=== PATIENT | male | born 1975 | race Caucasian/White ===

== ENCOUNTER 2021-07-16 15:52 | Emergency (ER) | payer SELFPAY ==
[~2021-07-16] VITALS: Ht 193 cm; Wt 100.0 kg
[2021-07-16 15:58] VITALS: BP 105/64
[2021-07-16] MEDS ORDERED: HYDROcodone/acetaminophen 10/325mg tab PO STA (16:02)
--- NOTE | 2021-07-16 17:12 | NUR ---
[employer]
[2021-07-16] MEDS ORDERED: morphine 4 MG/ML inj SYRINge IM ONE (17:30)
== END 2021-07-16 17:55 | disposition home or self-care (01) ==
LOC: ER 15:53
DX: S52.182A Other fracture of upper end of left radius, initial encounter for closed fracture (principal); W18.39XA Other fall on same level, initial encounter; Y93.89 Activity, other specified; Y92.89 Other specified places as the place of occurrence of the external cause; Y99.8 Other external cause status
CPT/HCPCS: 29105; 73090; 96372; 99283; J2270

== ENCOUNTER 2025-01-30 23:25 | Emergency (ER) | payer OTHER ==
[~2025-01-30] VITALS: Ht 193 cm; Wt 104.5 kg
--- NOTE | 2025-01-30 23:30 | Physician Documentation ---
History of Present Illness ~ Stated Complaint: LEG LAC M BLS Time Seen by MD: 23:26 HPI Patient presents to the emergency room for evaluation of laceration to his right elbow and right foot. Patient was taking a shower and had a glass sliding door that shattered resulting in his lacerations. He states he did have a syncopal episode after the laceration however he denies any head strike. Currently he is denying any pain medications. He is unsure of his last tetanus Tetanus witin 5 years: No Medication Reconciliation Allergies: Coded Allergies: No Known Allergies (Unverified , 07/16/21) Past Medical History Past Medical History: No Pertinent History Past Surgical History: noncontributory Alcohol Use: None Drug Use: none Lives In: Home Review of Systems ROS All review of systems negative except as per HPI Physical Exam Physical Exam General: Patient is awake, alert, oriented x4 in no acute distress and well appearing.~ Head: Normocephalic and atraumatic. Eyes: Conjunctival normal. EOMI. PERRL. ENT: Mucous membranes moist. Neck: Supple, trachea is midline. Chest: Clear to auscultation bilaterally without rales, rhonchi, or wheezes. There is no accessory muscle use or retractions. Cardiac: RRR without murmurs, gallops, or rubs. Extremities: 4 cm full-thickness laceration to dorsum of right foot. Movements intact. Good plethora. 3 cm full-thickness laceration to patient's right elbow with all movements intact. Procedures Procedures Laceration repair of elbow: Status post informed verbal consent patient was sterilely cleaned and draped. Patient anesthetized with 1% lidocaine with epinephrine to a total of 1 cc. 3-[address] five simple interrupted sutures and patient's 3 cm laceration. Wound was thoroughly irrigated previously to this. Patient tolerated procedure well without complication total time of procedure 7 minutes. Laceration repair foot: Status post informed verbal consent patient was sterilely cleaned and draped. Patient is anesthetized with 1% lidocaine with epinephrine to a total of 2 cc. 3-[address] seven simple interrupted sutures to approximate 4 cm laceration. Wound was thoroughly irrigated previously to closure. Patient tolerated procedure well without complication. Total time of procedure 10 minutes. Wound was explored for foreign bodies or tendinous ruptures but no foreign body or tendinous rupture could be appreciated. Progress Results/Orders Results/Orders Orders - GEORGI FRANCISCO MD Foot, Complete (3vw Min) (01/30/25 23:43) Dressing Orders (01/30/25 23:30) Laceration/I&D Tray Set Up (01/30/25 23:30) Wound Care Orders (01/30/25 23:30) Completed Orders - GEORGI FRANCISCO MD Foot, Complete (3vw Min) (01/30/25 23:43) Tetanus/Pertuss/Diph Acell/Pf (Boostrix (01/30/25 23:30) Bacitracin Ointment (Bacitracin Ointment (01/30/25 23:30) Ondansetron Disint. Tablet (Zofran Odt T (01/31/25 00:00) Ondansetron Disint. Tablet (Zofran Odt T (01/31/25 00:00) Medications Received in ER Medications (Trade) Dose Ordered Sig/Maliha Route PRN Reason Start Time Stop Time Status Last Admin Dose Admin (Boostrix vaccine syringe) 0.5 ml ONCE ONCE IMVAC 01/30/25 23:30 01/30/25 23:32 DC 01/31/25 00:14 0.5 ML (bacitracin ointment) 1 applic ONCE ONCE TP 01/30/25 23:30 01/30/25 23:32 DC 01/31/25 00:14 1 APPLIC (Zofran ODT tablet) 8 mg ONCE ONCE PO 01/31/25 00:00 01/31/25 00:07 DC 01/31/25 00:13 8 MG Vital Signs 01/30/25 23:37 Temp 98.2 Pulse 72 Resp 16 B/P (MAP) 112/69 Pulse Ox 98 Medical Decision Making Additional information obtaine: N/A Findings Patient presents to the emergency room with lacerations as per HPI. Differentials include but are not limited to laceration, tendinous injury, soft tissue injury, foreign body therefore x-ray performed which was negative for foreign body. Lacerations performed on patient's elbow and foot. Movements intact that he had not suspect tendinous rupture. Tetanus made to be up-to-date. Wound care discussed as well as the need to have sutures removed. Movements appear intact and I have low suspicion for tendon rupture however wound was explored and I could not appreciate any tendon rupture that that has slight decreased movement in his 4th digit of his right foot. This matches the movements of his left foot. Discussed with him the need to follow up with orthopedist should his toe not be working right but at this time I do not believe he has suffered a tendinous rupture. General Diff Dx:Considerations: Include: Abrasion, Contusion, Fracture, Hematoma, Laceration, Malunion, Neurovascular injury, Open fracture, Sprain, Ulcer, Other Knee Diff Dx:Considerations: Include: Abrasion, Arthritis, Contusion, DJD, Fracture-femur, Fracture-fibula, Fracture-patella, Fracture-tibia, Gout, Hematoma, Laceration, Meniscus injury, Neurovascular injury, Open fracture, Rheumatoid arthritis, Septic, Sprain, Sprain-MCL, Sprain-LCL, Sprain-ACL, Sprain-PCL, Other Ankle Diff Dx:Considerations: Include: Abrasion, Arthritis, Contusion, DJD, Fracture-metatarsal, Fracture-fibula, Fracture-tarsal, Fracture-tibia, Gout, Hematoma, Laceration, Malunion, Neurovascular injury, Nonunion, Open fracture, Osteomyelitis, Rheumatoid arthritis, Sprain, Septic, Ulcer, Other Foot Diff Dx:Considerations: Include: Abrasion, Arthritis, Cellulitis, Contusion, Dislocation, DJD, Fracture-metatarsal, Fracture-phalynx, Fracture- tarsal, Gout, Hematoma, Ingrown toenail, Laceration, Malunion, Neurovascular injury, Open fracture, Paronychia, Puncture, Rheumatoid, Sprain, Septic, Subun gual hematoma, Ulcer, Other Toe Diff Dx:Considerations: Include: Abrasion, Cellulitis, Contusion, Dislocat ion, Felon, Fracture, Hematoma, Laceration, Neurovascular injury, Open fracture, Paronychia, Subungual hematoma, Other Departure Disposition: 01 HOME / SELF CARE / HOMELESS Impression: Primary Impression: Laceration Condition: Stable Discharge Instructions: Laceration Care, Adult, [id number] Additional Instructions: Wash wounds with soap and water only. Keep covered with antibiotic ointment and Band-Aid. Have sutures removed in 7-10 days. Return for signs of infection. I do not believe you have suffered a tendon laceration however if you noticed that has obviously something wrong you can call the attached orthopedist to be evaluated. Referrals: NO PRIMARY CARE PROVIDER (PCP) YONATHAN ZELAYA MD Education Educated: Patient Educated regarding: diagnosis, treatment, need for follow up Signature Scribe Signature: No scribe Attestation: The note accurately reflects work and decisions made by me.Georgi Francisco MD 01/31/25 00:54 GEORGI FRANCISCO MD Jan 30, 2025 23:30
[2025-01-30 23:37] VITALS: BP 112/69; PULSE 72; RESP 16; O2SAT 98
--- NOTE | 2025-01-30 23:53 | RADIOLOGY REPORT ---
CLINICAL INDICATION: fb RIGHT FOOT TECHNIQUE: FOOT CPLTDI FOOT, COMPLETE (3VW MIN) Comparison: None FINDINGS/IMPRESSION: : There is no evidence of acute fracture or dislocation. Soft tissues are unremarkable.
[2025-01-31] MEDS: ondansetron 4mg rapidly disintigrating tab PO ONE ×2 (00:08→00:13)
[2025-01-31] MEDS: TETanus/Pertussis (Acell)/Diphther VAC/PF (Tdap-Adult) 0.5ml syringe IMVAC ONE (00:14)
[2025-01-31] MEDS: bacitracin 15gm ointment TP ONE (00:14)
[2025-01-31 01:18] VITALS: TEMP 98.2
== END 2025-01-31 01:25 | disposition home or self-care (01) ==
LOC: ER 23:25
DX: S51.011A Laceration without foreign body of right elbow, initial encounter (principal); S91.311A Laceration without foreign body, right foot, initial encounter; X58.XXXA Exposure to other specified factors, initial encounter; Y93.89 Activity, other specified; Y92.89 Other specified places as the place of occurrence of the external cause; Y99.8 Other external cause status
CPT/HCPCS: 12002; 73630; 90471; 90715; 99283; A6258; A6449

== ENCOUNTER → 2025-01-31 | Emergency (ER) | payer OTHER ==
[~2025-01-31] VITALS: Ht 198.1 cm; Wt 104.5 kg
[2025-01-31 21:23] VITALS: BP 139/81; PULSE 87; RESP 15; TEMP 96.8; O2SAT 98
--- NOTE | 2025-01-31 21:30 | Physician Documentation ---
History of Present Illness ~ Chief Complaint: Foot pain Stated Complaint: RIGHT FOOT PAIN Time Seen by MD: 21:26 Source: patient Mode of Arrival: POV Exam Limitations: no limitations HPI Patient had injury to right foot with a laceration from a piece of glass had it repaired last night concerned because her some swelling and toes that appear to be bruised concerned that there was lack of blood flow. Patient has kept the dressing on from last night and plans to take it off tomorrow. Patient is here for wound recheck Tetanus witin 5 years: No Medication Reconciliation Allergies: Coded Allergies: No Known Allergies (Unverified , 01/31/25) Past Medical History Past Medical History: No Pertinent History Past Surgical History: noncontributory Alcohol Use: None Drug Use: none Lives In: Home Review of Systems All Other Systems at this time: Reviewed and Negative Integumentary: Reports: see HPI Physical Exam Vital Signs: RN Vital Signs have been reviewed: Yes, Temperature: 96.8, Source: Temporal, Heart Rate: 87, Respiratory Rate: 15, BP: 139/81, Pulse Oximetry: 98, Weight: 104.500 Physical Exam General: Alert, no apparent distress. HEENT: moist mucous membranes. Neck: Full range of motion. Respiratory: No respiratory distress speaking in full sentences Chest: No accessory muscle use. Cardiovascular: Appears well perfused Neurologic: Oriented x4. Psychiatric: Normal mood and affect. Skin: Normal color, warm and dry. Toes number 3 and 4 with ecchymosis around the bases capillary refill plus 3 seconds sensation intact Progress Results/Orders Results/Orders Vital Signs 01/31/25 21:23 Temp 96.8 Pulse 87 Resp 15 B/P (MAP) 139/81 Pulse Ox 98 Medical Decision Making Additional information obtaine: N/A Findings Reassurance education including blanching, cap refill patient will continue to monitor and follow instructions from yesterday after laceration repair. General Diff Dx:Considerations: Include: Neurovascular injury, Other Knee Diff Dx:Considerations: Unlikely: Abrasion, Arthritis, Contusion, DJD, Fracture-femur, Fracture-fibula, Fracture-patella, Fracture-tibia, Gout, Hematoma, Laceration, Meniscus injury, Neurovascular injury, Open fracture, Rheumatoid arthritis, Septic, Sprain, Sprain-MCL, Sprain-LCL, Sprain-ACL, Sprain-PCL, Other Ankle Diff Dx:Considerations: Unlikely: Abrasion, Arthritis, Contusion, DJD, Fracture-metatarsal, Fracture-fibula, Fracture-tarsal, Fracture-tibia, Gout, Hematoma, Laceration, Malunion, Neurovascular injury, Nonunion, Open fracture, Osteomyelitis, Rheumatoid arthritis, Sprain, Septic, Ulcer, Other Foot Diff Dx:Considerations: Include: Neurovascular injury, Other Toe Diff Dx:Considerations: Include: Neurovascular injury Departure Time of Disposition: 21:29 Impression: Primary Impression: Laceration Condition: Stable Additional Instructions: To follow instructions from yesterday. Educated on capillary refill. Follow up with primary care feel free to return to the ER for any new or worsening symptom s Education Educated: Patient Educated regarding: diagnosis, treatment, need for follow up Signature Scribe Signature: No scribe Attestation: The note accurately reflects work and decisions made by me.Prerna Olsen - NEVILLE 01/31/25 21:29 PRERNA OLSEN NP Jan 31, 2025 21:30
== END | disposition home or self-care (01) ==
LOC: ER 20:48
DX: S91.311A Laceration without foreign body, right foot, initial encounter (principal); W25.XXXA Contact with sharp glass, initial encounter; Y93.89 Activity, other specified; Y92.89 Other specified places as the place of occurrence of the external cause; Y99.8 Other external cause status
CPT/HCPCS: 99282